=== PATIENT | male | born 1940 | race Caucasian/White ===

== ENCOUNTER 2018-04-27 05:15 | Emergency (ER) | payer OTHER, BC ==
--- NOTE | 2018-04-27 05:56 | EDPHY ---
H & P Stated Complaint: Dizzy Time Seen by Provider: 04/27/18 05:34 HPI/ROS: Chief Complaint: Dizziness HPI: 77-year-old male woke this morning and went to the bathroom. While in the bathroom he had a several 2nd episode of dizziness. Symptoms resolved went back to bed. He got up again later and had another brief episode of dizziness. This to quickly resolved. He got up went to the bathroom a 3rd time. While sitting on the toilet he felt dizziness again, this time the room was spinning any felt nauseated. This again lasted for about 10 sec and resolved. He has been symptom free since that time. He has a history of coronary artery disease status post stenting in the past. Did not have any chest pain or shortness of breath. Just return from a trip to [place] with his family 2 days ago. He has not had any leg pain or swelling. No cough or difficulty breathing. No fevers or chills. No headache. Currently is without complaint. ROS: 10 point Review of Systems is negative except as noted in the HPI. PMH: Coronary artery disease Social History: No smoking, no alcohol, no recreational drug use Family History: Coronary artery disease Physical Exam: Gen: Awake, Alert, No Distress HEENT: Nose: no rhinorrhea Eyes: PERRLA, EOMI Mouth: Moist mucosa Neck: Supple, no JVD Chest: nontender, lungs clear to auscultation Heart: S1, S2 normal, no murmur Abd: Soft, non-tender, no guarding Back: no CVA tenderness, no midline tenderness Ext: no edema, non-tender Skin: no rash Neuro: CN II-XII intact, Sensation grossly intact, Strength 5/5 in bilateral upper and lower extremities, he has no nystagmus, normal finger-nose, normal heel-montero, negative Romberg. Negative Rafael-Hallpike test. - Personal History Current Tetanus/Diphtheria Vaccine: Yes Current Tetanus Diphtheria and Acellular Pertussis (TDAP): Yes - Medical/Surgical History Hx Asthma: No Hx Chronic Respiratory Disease: No Hx Diabetes: No Hx Cardiac Disease: No Hx Renal Disease: No Hx Cirrhosis: No Hx Alcoholism: No Hx HIV/AIDS: No Hx Splenectomy or Spleen Trauma: No Other PMH: - 2011, stent x1. - Social History Smoking Status: Never smoked Constitutional: Initial Vital Signs Temperature (C) 36.7 C 04/27/18 05:19 Heart Rate 66 04/27/18 05:19 Respiratory Rate 16 04/27/18 05:19 Blood Pressure 163/93 H 04/27/18 05:19 O2 Sat (%) 97 04/27/18 05:19 O2 Delivery Mode Room Air Allergies/Adverse Reactions: gluten Allergy (Verified 04/27/18 05:22) Home Medications: Medication Instructions Recorded Amlodipine Besylate 04/27/18 Aspirin 81mg (*) 04/27/18 Famotidine 04/27/18 Lisinopril 04/27/18 Simvastatin 04/27/18 Medical Decision Making - Diagnostics EKG Interpretation: ECG time 5:54 a.m., sinus rhythm with a rate of 57, normal axis, normal intervals, no acute ST or T-wave changes. Impression: Normal ECG. ED Course/Re-evaluation: Patient is unchanged. ECG is normal. Laboratory evaluations are unremarkable. He is complaining of some very mild nausea right now but no dizziness. And see any evidence of acute ischemic stroke acute coronary syndrome or infectious process at this time. We have discussed at length. He agrees with the plan to go home with oral antiemetics as needed, return for any concerns. He will follow up with primary care physician in several days for recheck. - Data Points Laboratory Results: Laboratory Results 04/27/18 05:55 04/27/18 05:55 04/27/18 04/27/18 04/27/18 06:00 05:55 05:55 WBC 4.13 10^3/uL 10^3/uL (3.80-9.50) RBC 4.94 10^6/uL 10^6/uL (4.40-6.38) Hgb 14.8 g/dL g/dL (13.7-17.5) Hct 43.0 % % (40.0-51.0) MCV 87.0 fL fL (81.5-99.8) MCH 30.0 pg pg (27.9-34.1) MCHC 34.4 g/dL g/dL (32.4-36.7) RDW 12.4 % % (11.5-15.2) Plt Count 134 10^3/uL L 10^3/uL (150-400) MPV 12.9 fL H fL (8.7-11.7) Neut % (Auto) 60.1 % % (39.3-74.2) Lymph % (Auto) 25.7 % % (15.0-45.0) Pitkin % (Auto) 10.9 % % (4.5-13.0) Eos % (Auto) 1.9 % % (0.6-7.6) Baso % (Auto) 1.2 % % (0.3-1.7) Nucleat RBC Rel Count 0.0 % % (0.0-0.2) Absolute Neuts (auto) 2.48 10^3/uL 10^3/uL (1.70-6.50) Absolute Lymphs (auto) 1.06 10^3/uL 10^3/uL (1.00-3.00) Absolute Monos (auto) 0.45 10^3/uL 10^3/uL (0.30-0.80) Absolute Eos (auto) 0.08 10^3/uL 10^3/uL (0.03-0.40) Absolute Basos (auto) 0.05 10^3/uL 10^3/uL (0.02-0.10) Absolute Nucleated RBC 0.00 10^3/uL 10^3/uL (0-0.01) Immature Gran % 0.2 % % (0.0-1.1) Immature Gran # 0.01 10^3/uL 10^3/uL (0.00-0.10) Sodium 142 mEq/L mEq/L (135-145) Potassium 4.2 mEq/L mEq/L (3.3-5.0) Chloride 105 mEq/L mEq/L (97-110) Carbon Dioxide 27 mEq/l mEq/l (22-31) Anion Gap 10 mEq/L mEq/L (8-16) BUN 19 mg/dL mg/dL (7-23) Creatinine 1.0 mg/dL mg/dL (0.7-1.3) Estimated GFR > 60 Glucose 109 mg/dL H mg/dL (70-100) Calcium 9.3 mg/dL mg/dL (8.5-10.4) POC Troponin I 0.02 ng/mL ng/mL (0.00-0.08) Point of Care Test Results: Chemistry 04/27/18 06:00 POC Troponin I 0.02 ng/mL ng/mL (0.00-0.08) Departure - Departure Disposition: Home, Routine, Self-Care Clinical Impression: Dizziness Condition: Good Instructions: Dizziness (ED), Ondansetron (By mouth) Additional Instructions: You may take Zofran as needed for nausea. Return to the emergency department for persistent dizziness, difficulty walking , headache, weakness, vomiting, or any other concerns. Follow up with primary care physician in 3-4 days for further evaluation. Referrals: Patient,NotPresent [Unknown] - As per Instructions
[2018-04-27 06:13] LABS: PLATELET COUNT 134 10^3/uL (150-400)
[2018-04-27] MEDS ORDERED: ONDANSETRON 4MG PREPACK#2 BTL TAKEHOME ONE (06:32)
[2018-04-27 06:57] VITALS: BP 181/95
== END 2018-04-27 06:55 | disposition home or self-care (01) ==
DX: R42 Dizziness and giddiness (principal); I25.2 Old myocardial infarction; Z95.5 Presence of coronary angioplasty implant and graft
CPT/HCPCS: 84484-PO